=== PATIENT | female | born 2000 | race Caucasian/White ===

== ENCOUNTER 2022-12-15 04:56 | Emergency (ER) | payer BC, SELFPAY ==
[2022-12-15 05:09] VITALS: BP 108/68; PULSE 77; RESP 18; TEMP 36.8; O2SAT 99; BMI 25.2
--- NOTE | 2022-12-15 06:04 | ED.GENADULT ---
HPI - General Adult General Chief complaint: Abdominal Pain Stated complaint: abdominal & chest pain Time Seen by Provider: 12/15/22 05:07 History of Present Illness HPI narrative: 22-year-old young woman here with her boyfriend with concern of chest and abdominal pain such that she just can not sleep. Has had to extensive evaluations in regional emergency departments within the last 4 days. I do review these records. She is not taking any pain medications, not even acetaminophen. She is complaining of bilateral upper mid axillary line chest pain that alexis and worse with inspiration or with any movement. Has been going on 2 weeks now. She says it feels like an asthma attack; reporting having had asthma as a child. It becomes apparent that really is diffusely over her chest. She does have some cough sounds like it is more when she is lying down. I asked her specifically what she is most worried about earlier and sounds like she is worried about pneumonia. With the same symptoms which have been present over the last 2 weeks evaluations have included normal white count normal D-dimer normal chest x-rays without evidence of pneumonia or pneumothorax or pneumomediastinum. Sounds as though she did have COVID 2-3 years ago. They did measure a temperature to 100 yesterday? No rashes. Has been struggling also with initially upper abdominal pain which has progressed throughout her abdomen. Has had normal CT imaging. She reports having recently had also a normal EGD biopsies were taken. She has been initiated on omeprazole and Carafate however. GI cocktails were given in the emergency department it looks like in to says that just made her worse. With eating anything she says her stomach alexis. She also subsequently has loose to diarrheal stools. There is blood in this stool sometimes. Pain is often also in the left upper to mid abdomen. There was a question here of whether not she might have ischemic stomach; wondering whether any labs to that and had been ordered in the last few days. No family history of rheumatological disorders or bowel abnormalities. Related Data Home Medications Medication Instructions Recorded Confirmed fluoxetine 20 mg capsule 20 mg PO DAILY 12/15/22 12/15/22 norgestimate-ethinyl estradiol 1 tab PO DAILY 12/15/22 12/15/22 0.18 mg/0.215mg/0.25mg-35 mcg(28)tablet omeprazole 40 mg capsule,delayed 40 mg PO DAILY 12/15/22 12/15/22 release ondansetron HCl 4 mg tablet 4 mg PO Q8H PRN nausea/vomiting 12/15/22 12/15/22 sucralfate 1 gram tablet 1 g PO QID 12/15/22 12/15/22 Allergies Allergy/AdvReac Type Severity Reaction Status Date / Time No Known Drug Allergies Allergy Verified 12/15/22 05:12 Review of Systems Status of ROS: Reports: 6 or more systems reviewed and unremarkable except as noted in History and below [facility] Medical History Abdominal pain Anxiety Asthma Chest pain GERD (gastroesophageal reflux disease) No significant past medical history Social History Smoking Status: Never smoker Do you use any of these nicotine containing products: None Second hand tobacco smoke exposure: No How often do you have a drink containing alcohol: never How often do you have six or more drinks on one occasion: Never AUDIT-C Alcohol total score: 0 Non-prescribed substance use: denies use Exam Narrative: Exam Narrative: Brow is furrowed in apparent discomfort and concern. Who is quite calm. Does not appear to be any particular distress. Is not labored in her breathing. Lungs actually are clear. Near the end of extended conversation did have two small singular coughs. Oropharynx is moist. I do not see cobblestoning. Neck is supple without adenopathy. No supraclavicular crepitus. She is diffusely tender over entire thorax/chest. This includes the rhomboids. Skin is warm and dry. Well perfused. Extremities are with no to edema. Abdomen is tender I would say in anticipation as well. Also diffusely tender more so over the upper abdomen especially epigastrium. Normal bowel sounds. Soft without peritoneal signs. Const: Vital Signs, click to edit/add: Vital Signs - 24 hr 12/15/22 05:09 12/15/22 06:23 12/15/22 06:23 Temperature 98.2 F 98.2 F 98.2 F Pulse Rate [Right Pulse Oximeter] 77 77 Respiratory Rate 18 18 Blood Pressure [Ri ght Upper Arm] 108/68 108/68 Pulse Oximetry 99 99 Oxygen Delivery Me thod Room Air Room Air 12/15/22 06:25 Temperature 98.2 F Pulse Rate [Right Pulse Oximeter] 77 Respiratory Rate 18 Blood Pressure [Ri ght Upper Arm] 108/68 Pulse Oximetry Oxygen Delivery Me thod Documenting provider has reviewed patient's vital signs: yes Course Vital Signs Vital signs: Initial Vital Signs Temperature 98.2 F 12/15/22 05:09 Temperature Source Temporal Artery Scan 12/15/22 05:09 Pulse Rate 77 12/15/22 05:09 Respiratory Rate 18 12/15/22 05:09 Blood Pressure 108/68 12/15/22 05:09 Blood Pressure Mean 81 12/15/22 05:09 Blood Pressure Position Sitting 12/15/22 05:09 Pulse Oximetry 99 12/15/22 05:09 Oxygen Delivery Method 12/15/22 05:09 Vital Signs Temperature 98.2 F 12/15/22 05:09 Pulse Rate 77 12/15/22 05:09 Respiratory Rate 18 12/15/22 05:09 Blood Pressure 108/68 12/15/22 05:09 Pulse Oximetry 99 12/15/22 05:09 Oxygen Delivery Method 12/15/22 05:09 Temperature 98.2 F 12/15/22 06:25 Pulse Rate 77 12/15/22 06:25 Respiratory Rate 18 12/15/22 06:25 Blood Pressure 108/68 12/15/22 06:25 Pulse Oximetry 99 12/15/22 06:23 Oxygen Delivery Method 12/15/22 06:23 Medical Decision Making MDM Narrative Medical decision making narrative: Normal vitals here with extensive evaluation recently without findings. I do not know that much more from an evaluation standpoint can be done in the setting the emergency department. She does have an appointment with Gastroenterology for her stomach tomorrow. Has also been recommended to see acupuncture; it is not clear to me that appointment is yet been made. Seems to have symptoms consistent with irritable bowel at this point. I do not know if some of this started on the heels of COVID. She is reporting some intermittent hematochezia which might require yet a colonoscopy. Appears today to be complaining primarily of reproducible chest wall pain. Surely some deconditioning as well is affecting her symptoms. Has not taken any pain medication of any sort only medications prescribed for stomach. It seems that chest pain is of more concern today. I discussed then treating for apparent chest wall pain. I see no evidence an asthma exacerbation. Decided to proceed with a shot of ketorolac and then continuation with prednisone. I do have concerns that prednisone might irritate stomach. Should probably take this with a little bit of food. Potentially less irritating though than NSAID like ibuprofen. Discharge Plan Discharge Clinical Impression: Chest wall pain, Cough Patient Disposition: Home w/ Parent or Adult Condition: Stable Additional Instructions: Continue to focus on hydration. Diluted juices, sodas, Jell-O, popsicles. I think it is very good you have a follow-up with Gastroenterology tomorrow. Please get follow-up appointment scheduled with your primary care provider for within the next 2 weeks. You need a plan following this appointment with Gastroenterology. Usually acetaminophen does not hurt a stomach though I suppose consider taking nearly any medication with a little bit of food. Can take up to 1000 mg per dose every 6 hours. I would try to take the prednisone with a little bit of food if possible. It does seem as though you have developed, for lack of better terminology, some irritable bowel. Acupuncture may indeed be helpful. Perhaps appointment with alternative or naturopathic medicine would be in order as well. Prednisone from [facility]. Prescriptions: No Action sucralfate 1 gram tablet 1 g PO QID ondansetron HCl 4 mg tablet 4 mg PO Q8H PRN (Reason: nausea/vomiting) omeprazole 40 mg capsule,delayed release(DR/EC) 40 mg PO DAILY norgestimate-ethinyl estradiol 0.18/0.215/0.25 mg-35 mcg (28) tablet 1 tab PO DAILY fluoxetine 20 mg capsule 20 mg PO DAILY Stand Alone Forms: [employer] Info Instructions
[2022-12-15 06:23] VITALS: BP 108/68; PULSE 77; RESP 18; TEMP 36.8; O2SAT 99
[2022-12-15] MEDS: KETOROLAC 60 MG/2 ML inj IM (06:23)
[2022-12-15 06:25] VITALS: BP 108/68; PULSE 77; RESP 18; TEMP 36.8
== END 2022-12-15 06:25 | disposition home or self-care (01) ==
PROVIDERS: Emergency Provider Family Medicine; PCP Student in an Organized Health Care Education/Training Program
DX: R07.89 Other chest pain (principal); R05.9 Cough, unspecified
CPT/HCPCS: 96372; 99283; 99284; J1885

== ENCOUNTER 2023-01-27 11:33 | Outpatient (CLI) | payer BC, SELFPAY ==
--- NOTE | 2023-01-27 12:00 | CRLHL7_ITS ---
For Patients: As a result of the 21st Century Cures Act, medical imaging exams and procedure reports are released immediately into your electronic medical record. You may view this report before your referring provider. If you have questions, please contact your health care provider. HISTORY: 22-year-old female. Abdominal pain. TECHNIQUE: 5.11 millicuries of [id number] was injected intravenously. Images of the liver, gallbladder and abdomen were obtained in the anterior projection for 60 minutes. 1.27 mcg CCK was then administered intravenously and imaging was continued for an additional 30 minutes. FINDINGS: There is good uptake of activity by the hepatocytes. There is visualization of the biliary tree, gallbladder and small bowel. In response to CCK administration, there was an abnormally low gallbladder ejection fraction of 7 percent by 30 minutes. IMPRESSION: 1. Abnormally low gallbladder ejection fraction of 7 percent. 2. These findings are consistent with chronic cholecystitis/biliary dyskinesis/acalculous cholecystitis. Dictated by Stuart Ndiaye MD @ 01/27/2023 2:39:09 PM (Electronically Signed)
== END 2023-01-27 11:34 | disposition home or self-care (01) ==
LOC: NM 11:33
PROVIDERS: PCP Student in an Organized Health Care Education/Training Program; Visit Provider Internal Medicine Gastroenterology
DX: R10.10 Upper abdominal pain, unspecified (principal); K64.8 Other hemorrhoids; R63.4 Abnormal weight loss
CPT/HCPCS: 78227; A9537; J2805

== ENCOUNTER 2023-02-10 07:41 | Day surgery (SDC) | payer BC, SELFPAY ==
[2023-02-10] VITALS (11 sets, daily range): BP systolic 98–132; BP diastolic 66–84; PULSE 66–98; RESP 12–20; TEMP 36.1–37.2; O2SAT 95–100; BMI 28.0
[2023-02-10 08:03] LABS: Ur HCG Qualitative* Negative (Negative)
[2023-02-10] MEDS: LACTATED RINGERS 1000 ML 1,000 ML 100 ML IV (08:15)
[2023-02-10] MEDS: SODIUM CHLORIDE 0.9 % (FLUSH) 10 ML SYRINGE IVF (08:15)
--- NOTE | 2023-02-10 08:54 | W.ANESCHARGE ---
Anesthesia Charges Start Date/Time Anesthesia Start Date: 02/10/23 Anesthesia Start Time: 08:34 Stop Date/Time Anesthesia Stop Date: 02/10/23 Anesthesia Stop Time: 09:37
[2023-02-10] MEDS: CEFAZOLIN 2 GM INJ IVP (08:55)
[2023-02-10] MEDS: BUPIVACAINE 0.5% 30 ML 20 ML INJECTION (09:15)
--- NOTE | 2023-02-10 09:23 | PM.GSPRC ---
Operative Note Date of procedure: 02/10/23 Pre-op diagnosis: Biliary dyskinesia Post-op diagnosis: Same Type of Procedure: Laparoscopic cholecystectomy Indications: Patient is a 22-year-old female who presented to clinic with symptomatic right upper quadrant abdominal pain. Workup was obtained with HIDA scan demonstrating an abnormally low ejection fraction and dysfunction of the gallbladder. Risks and benefits of operative intervention were discussed at length with the patient. Risks included but was not limited to: Bleeding, infection, risk of damage to surrounding structures, possible need for additional procedures, possible need to convert to an open operation and postoperative complications such as pneumonia, pulmonary emboli or DE. All questions and concerns were addressed with the patient agreeing to proceed. Procedure Description: After discussing the risks and benefits of the procedure, the patient signed informed consent.? The operative site was marked and the patient was brought to the operating room and placed on the operating table in supine position.? Care was taken to pad the patient's pressure points.?? The patient was then intubated by anesthesia.?? The operative site was then prepped and draped in the usual sterile fashion.? A time-out was then performed. ? Entrance to the abdomen was gained via a 5 mm Visiport in the left upper quadrant. The abdomen was insufflated and briefly surveyed for signs of injury. There was none. 11 mm umbilical port was placed as well as 2 working ports along the right costal margin. Patient was then placed in reverse Trendelenburg position with the right side up. The gallbladder fundus was grasped and retracted cephalad. The infundibulum was grasped. A combination of hook cautery and blunt dissection was used to carefully dissect out the cystic duct and artery until they could clearly be seen entering the gallbladder without any intervening structures. The gallbladder was dissected off the cystic plate to achieve the critical view. Once this was achieved the cystic duct and artery were each clipped with 2 clips proximally and 1 clip distally and transected with the scissors. The gallbladder was then taken off of the liver bed. And removed from the abdomen using an Endo-Catch bag. The gallbladder bed was surveyed for hemostasis, which was excellent. The ports were then removed under direct vision. The umbilical port fascia was closed with 0 Vicryl. The skin was closed with absorbable subcuticular suture. Instrument sponge and needle counts were correct at the end of the case. The patient was then woken and transferred to the PACU in stable condition. Sterile dressings were then applied. ? Findings: Normal gallbladder. Anesthesia: GETA Surgeon: Alyssa Cooper MD Estimated blood loss (mL): 5 Specimen: Gallbladder Condition: stable Disposition: same day
--- NOTE | 2023-02-10 09:41 | W.ANESCHARGE ---
Anesthesia Charges Start Date/Time Anesthesia Start Date: 02/10/23 Anesthesia Start Time: 08:34 Stop Date/Time Anesthesia Stop Date: 02/10/23 Anesthesia Stop Time: 09:37
[2023-02-10] MEDS: ACETAMINOPHEN 325 MG TABLET 650 MG PO (10:32)
== END 2023-02-10 11:03 | disposition home or self-care (01) ==
PROVIDERS: PCP Student in an Organized Health Care Education/Training Program; Visit Provider Surgery
PROC: 0FT44ZZ Resection of Gallbladder, Percutaneous Endoscopic Approach (ICD-10-PCS; CPT 47562; principal; 2023-02-10 09:00)
DX: K82.8 Other specified diseases of gallbladder (principal); R10.11 Right upper quadrant pain
CPT/HCPCS: 47562; 00790; 81025; 88304; A9270; J0330; J0690; J1100; J2250; J2405; J2704; J3010; J3490; J7120

== ENCOUNTER 2023-05-04 12:33 | Emergency (ER) | payer BC, SELFPAY ==
[2023-05-04 12:55] VITALS: BP 106/73; PULSE 82; RESP 18; TEMP 36.6; O2SAT 100; BMI 23.8
--- NOTE | 2023-05-04 13:13 | ED.GENADULT ---
HPI - General Adult General Chief complaint: Abdominal Pain Stated complaint: abdominal pain, post op complications Time Seen by Provider: 05/04/23 12:49 History of Present Illness HPI narrative: Patient is a 22-year-old female go to gallbladder out a couple months ago with Dr. Cheek, has had intermittent loose stool especially after she eats, some occasional abdominal bloating. She thinks she also has occasional fever. She has no fever today, reports that her abdomen feels a little bloated. She has not had constipation has been able to eat and drink fluids good urine output. No weight loss Related Data Home Medications Medication Instructions Recorded Confirmed fluoxetine 20 mg capsule 20 mg PO DAILY 12/15/22 05/04/23 norgestimate-ethinyl estradiol 1 tab PO DAILY 12/15/22 05/04/23 0.18 mg/0.215mg/0.25mg-35 mcg(28)tablet ondansetron HCl 4 mg tablet 4 mg PO Q8H PRN nausea/vomiting 12/15/22 02/10/23 Previous Rx's Medication Instructions Recorded oxycodone 5 mg tablet 5 mg PO Q6H PRN pain #15 tabs 02/10/23 sennosides 8.6 mg capsule (senna) 8.6 mg PO DAILY PRN constipation 02/10/23 #90 caps Allergies Allergy/AdvReac Type Severity Reaction Status Date / Time adhesive tape Allergy Verified 02/10/23 07:59 Influenza Virus Vaccines AdvReac Severe Hives Verified 02/02/23 13:19 Review of Systems Status of ROS: Reports: 6 or more systems reviewed and unremarkable except as noted in History and below PFSH PFS Medical History Chest pain ?R07.9 - Chest pain, unspecified (ICD-10) Abdominal pain ?R10.9 - Unspecified abdominal pain (ICD-10) Asthma ?J45.909 - Unspecified asthma, uncomplicated (ICD-10) Anxiety ?F41.9 - Anxiety disorder, unspecified (ICD-10) GERD (gastroesophageal reflux disease) ?K21.9 - Gastro-esophageal reflux disease without esophagitis (ICD-10) No significant past medical history Social History Smoking Status: Never smoker Do you use any of these nicotine containing products: None Second hand tobacco smoke exposure: No How often do you have a drink containing alcohol: 2-4 times a month AUDIT-C Alcohol total score: 2 Non-prescribed substance use: denies use Caffeine: Yes (coffee) Are you using contraception or practicing any form of control: Yes ( control) Exam Narrative: Exam Narrative: Objective: Vital signs unremarkable, afebrile In general no apparent distress pulses regular Abdomen benign soft nontender Surgical small scars appear well healed No rebound or masses Const: Vital Signs, click to edit/add: Vital Signs - 24 hr 05/04/23 12:55 05/04/23 13:34 Temperature 97.9 F 98.6 F Pulse Rate [Right Pulse Oximeter] 82 70 Respiratory Rate 18 16 Blood Pressure [Ri ght Upper Arm] 106/73 107/72 Pulse Oximetry 100 Oxygen Delivery Me thod Room Air Course Vital Signs Vital signs: Initial Vital Signs Temperature 97.9 F 05/04/23 12:55 Temperature Source Temporal Artery Scan 05/04/23 12:55 Pulse Rate 82 05/04/23 12:55 Respiratory Rate 18 05/04/23 12:55 Blood Pressure 106/73 05/04/23 12:55 Blood Pressure Mean 84 05/04/23 12:55 Blood Pressure Position Sitting 05/04/23 12:55 Pulse Oximetry 100 05/04/23 12:55 Oxygen Delivery Method Room Air 05/04/23 12:55 Vital Signs Temperature 97.9 F 05/04/23 12:55 Pulse Rate 82 05/04/23 12:55 Respiratory Rate 18 05/04/23 12:55 Blood Pressure 106/73 05/04/23 12:55 Pulse Oximetry 100 05/04/23 12:55 Oxygen Delivery Method Room Air 05/04/23 12:55 Temperature 98.6 F 05/04/23 13:34 Pulse Rate 70 05/04/23 13:34 Respiratory Rate 16 05/04/23 13:34 Blood Pressure 107/72 05/04/23 13:34 Pulse Oximetry 100 05/04/23 12:55 Oxygen Delivery Method Room Air 05/04/23 12:55 Medical Decision Making MDM Narrative Medical decision making narrative: 22 year old white female status post gallbladder removal couple months ago with some intermittent loose stools after meals, some abdominal bloating. Patient may have some type of dumping syndrome that is known to happen after cholecystectomy, and I will set her up to see DrTheodora: Her regular surgeon regarding head options and assessment. In the interim I think checking labs be appropriate in form LFTs amylase electrolytes and CBC CRP. If these are reassuring follow-up with Dr. Cheek is scheduled Lab Data Labs: Lab Results 05/04/23 Range/Units 13:16 WBC 5.36 (4.50-11.00) K/uL RBC 4.54 (4.00-5.20) m/uL Hgb 13.1 (12.0-16.0) gm/dL Hct 38.8 (33.0-51.0) % MCV 86 (80-100) fL MCH 29 (26-34) pg MCHC 34 (32-36) gm/dL RDW Coeff of Oscar 11.0 L (11.5-15.5) % Plt Count 231 (140-440) K/uL Neut % (Auto) 57.4 (42.0-72.0) % Lymph % (Auto) 31.5 (20-44) % Reynolds % (Auto) 7.5 (0.0-11.0) % Eos % (Auto) 3.2 (0.0-7.0) % Baso % (Auto) 0.4 (0.0-3.0) % Neut # (Auto) 3.08 (1.7-7.0) K/uL Lymph # (Auto) 1.69 (0.90-2.90) K/uL Reynolds # (Auto) 0.40 (0.00-0.90) K/UL Eos # (Auto) 0.17 (0.00-0.50) K/uL Baso # (Auto) 0.02 (0.00-0.30) K/uL Abs Immat Gran (auto) 0.00 (0.00-0.30) K/uL Imm/Tot Granulo (auto) 0.0 % Sodium 137 (135-149) mmol/L Potassium 3.5 L (3.6-5.1) mmol/L Chloride 105 (96-114) mmol/L Carbon Dioxide 28 (20-32) mmol/L BUN 12 (5-24) mg/dL Creatinine 0.7 (0.5-1.5) mg/dL Estimated Creat Clear 100.55 Estimated GFR 126 ml/min Glucose 86 (60-115) mg/dL Calcium 8.4 (8.4-10.6) mg/dL Total Bilirubin 0.4 (0.1-1.5) mg/dL Direct Bilirubin 0.0 (0.0-0.5) mg/dL AST 18 (12-35) U/L ALT 15 (4-35) U/L Alkaline Phosphatase 78 (40-150) U/L C-Reactive Protein 1.0 (0.5-1.0) mg/dL Total Protein 7.1 (6.0-8.3) g/dL Albumin 4.1 (3.3-5.0) g/dL Amylase 77 (18-89) U/L Discharge Plan Discharge Clinical Impression: Abdominal bloating, History of cholecystectomy Patient Disposition: Home, Self-Care Condition: Stable Additional Instructions: Low-fat diet, eat yogurt every day, follow up with Dr. Cooper as scheduled. Return to ED sooner problems or concerns Follow up appointment is scheduled at the [facility] on 05/11 with a 4:15pm appointment time. Please arrive at 4:05pm to check in. If you have any questions or need to reschedule, please call [phone]. [facility] [address] [place] [address] Activity Level: No Restrictions Discharge Diet: Low Fat/Low Cholesterol Prescriptions: No Action ondansetron HCl 4 mg tablet 4 mg PO Q8H PRN (Reason: nausea/vomiting) norgestimate-ethinyl estradiol 0.18/0.215/0.25 mg-35 mcg (28) tablet 1 tab PO DAILY fluoxetine 20 mg capsule 20 mg PO DAILY oxycodone 5 mg tablet 5 mg PO Q6H PRN (Reason: pain) Qty: 15 0RF senna 8.6 mg capsule 8.6 mg PO DAILY PRN (Reason: constipation) Qty: 90 0RF Follow Up/Referrals: Fabi Santos PA-C [Primary Care Provider] - Stand Alone Forms: [employer] Info Instructions
[2023-05-04 13:27] LABS: Basophils Absolute Auto 0.02 K/uL (0.00-0.30); Basophils Percent Auto 0.4 % (0.0-3.0); Eosinophils Absolute Auto 0.17 K/uL (0.00-0.50); Eosinophils Percent Auto 3.2 % (0.0-7.0); Hematocrit 38.8 % (33.0-51.0); Hemoglobin* 13.1 gm/dL (12.0-16.0); Lymphocytes Absolute Auto 1.69 K/uL (0.90-2.90); Lymphocytes Percent Auto 31.5 % (20-44); Mean Corpuscular HGB Conc 34 gm/dL (32-36); Mean Corpuscular Hemoglobin 29 pg (26-34); Mean Corpuscular Volume 86 fL (80-100); Monocytes Percent Auto 7.5 % (0.0-11.0); Neutrophils Absolute Auto 3.08 K/uL (1.7-7.0); Neutrophils Percent Auto 57.4 % (42.0-72.0); Platelet Count* 231 K/uL (140-440); Red Blood Count 4.54 m/uL (4.00-5.20); White Blood Count* 5.36 K/uL (4.50-11.00)
[2023-05-04 13:28] LABS: Slide Review Reflex No
[2023-05-04 13:34] VITALS: BP 107/72; PULSE 70; RESP 16; TEMP 37
[2023-05-04 13:40] LABS: Albumin* 4.1 g/dL (3.3-5.0); Chloride* 105 mmol/L (96-114)
[2023-05-04 13:41] LABS: Potassium* 3.5 mmol/L (3.6-5.1); Sodium* 137 mmol/L (135-149)
[2023-05-04 13:43] LABS: Amylase* 77 U/L (18-89); Creatinine* 0.7 mg/dL (0.5-1.5); Est. Creatinine Clearance* 100.55; Estimated Glomerular Filt Rate 126 ml/min
[2023-05-04 13:44] LABS: Alanine Aminotransferase* 15 U/L (4-35); Alkaline Phosphatase* 78 U/L (40-150); Aspartate Amino Transferase* 18 U/L (12-35); Bilirubin Total* 0.4 mg/dL (0.1-1.5); Blood Urea Nitrogen* 12 mg/dL (5-24); Calcium* 8.4 mg/dL (8.4-10.6); Carbon Dioxide* 28 mmol/L (20-32); Glucose* 86 mg/dL (60-115); Total Protein* 7.1 g/dL (6.0-8.3)
== END 2023-05-04 13:30 | disposition home or self-care (01) ==
LOC: ED 13:22
PROVIDERS: Emergency Provider Family Medicine; PCP Student in an Organized Health Care Education/Training Program
DX: R14.0 Abdominal distension (gaseous) (principal)
CPT/HCPCS: 36415; 80048; 80076; 82150; 85025; 86140; 99283

== ENCOUNTER 2025-10-01 16:01 | Outpatient (CLI) | payer SELFPAY ==
[2025-10-01 16:07] VITALS: PULSE 108; PULSE 127; O2SAT 80; O2SAT 99
[2025-10-01 16:11] VITALS: BMI 32.0
[2025-10-01 16:12] VITALS: PULSE 110; O2SAT 97
[2025-10-01 16:23] VITALS: BP 116/64; PULSE 106; RESP 18; TEMP 37.2
[2025-10-01 16:56] LABS: Appearance Urine Slightly Cloudy (Clear)
--- NOTE | 2025-10-01 17:05 | CRLHL7_ITS ---
For Patients: As a result of the Cures Act, medical imaging exams and procedure reports are released immediately into your electronic medical record. You may view this report before your referring provider. If you have questions, please contact your health care provider. INDICATION: contractions. TECHNIQUE: Limited transabdominal and transvaginal OB pelvic ultrasound. COMPARISON: Ultrasound 06/28/2025. FINDINGS: Closed cervical length is 3.1 cm. Single living intrauterine in vertex presentation with heart rate of 149 beats per minute. Anterior placenta is otherwise unremarkable. Single deepest pocket of amniotic fluid is within normal limits at 6.6 cm. No pelvic free fluid demonstrated. IMPRESSION: Single living intrauterine in vertex presentation. Closed cervical length is 3.1 cm. Dictated by George Turner MD @ 10/01/2025 6:40:37 PM Dictated by: George Turner MD @ 10/01/2025 18:40:50 (Electronically Signed)
[2025-10-01 17:16] LABS: Trichomonas No Trichomonas Seen (None Seen)
[2025-10-01 17:38] LABS: Amnisure Rom* Negative
[2025-10-01 19:22] VITALS: BP 113/68; PULSE 125; RESP 16; TEMP 36.6
--- NOTE | 2025-10-01 20:52 | PM.OBLDTN ---
OB - Triage/Final Diagnosis Visit Information Time Seen by Provider: 17:10 Date Seen: 10/01/25 Date of evaluation: 10/01/25 Narrative: The patient is a 25 year old 1 para 0 at 33 weeks 5 days gestation by LMP c/w 6wk US, who presents with 3 days of pelvic cramping and pink discharge. Patient notes that she started to develop uterine cramping, similar to that of period cramps, about 3 days ago. She does have both pelvic pain and back pain. She also notes that she has some pink tinged discharge. She denies leakage of fluid. Her baby is active. She is otherwise feeling well. She denies any urinary symptoms. She ultimately called her OB provider today due to annoyance that the cramping had been going on for 3 days. Her is largely uncomplicated, but upon chart review she did note uterine cramping/reba cortez at 31 weeks and a difficult time getting comfortable. Evaluation Cervical dilation (cm): 0 Laboratory results: Laboratory Tests 10/01/25 10/01/25 Range/Units 17:29 16:32 Urine Color Yellow (Yellow) Urine Appearance Slightly Cloudy A (Clear) Urine pH 7.0 (5.0-8.5) Ur Specific [place] 1.020 (1.000-1.030) Urine Protein Trace A (Negative) Urine Glucose (UA) Trace A (Negative) Urine Ketones Negative (Negative) Urine Blood Negative (Negative) Urine Nitrite Negative (Negative) Urine Bilirubin Negative (Negative) Urine Urobilinogen 0.2 (0.2-1.0) Ur Leukocyte Esterase 1+ A (Negative) Urine RBC 0-2 (0-2) Urine WBC 0-2 (0-5) Ur Squamous Epith Cells Many A (None-Few) Amorphous Sediment Few A (None) Urine Bacteria Few A (None) Membrane Rupture Negative Vaginal Trichomonas No Trichomonas Seen (None Seen) Vaginal Yeast No Yeast Seen (None Seen) Vaginal Clue Cells No Clue Cells Seen (None Seen) Vital signs: Vital Signs - 24 hr 10/01/25 16:07 10/01/25 16:07 10/01/25 16:12 Temperature Pulse Rate Respiratory Rate Blood Pressure Pulse Oximetry 80 L 99 97 10/01/25 16:23 10/01/25 16:23 12/30/25 19:22 Temperature 99 F Pulse Rate 106 H 125 H Respiratory Rate 18 Blood Pressure 116/64 113/68 Pulse Oximetry Comments: Limited OB US with closed cervix that is 3.1cm in length. Generally well appearing, mildly anxious. Overall appears comfortable. Appears well perfused. Unlabored breathing. Abdomen gravid, but otherwise soft and nontender. Unable to palpate contractions that are noted on the monitor, patient does not feel them either. Vulva normal, but appears moist. Vaginal tissue normal appearing. Yellow-white thin disscharge in vaginal vault that pools in the speculum, possible fluid level to the discharge but no obvious pooling of clear fluid or trickling of fluid from the os. Cervix appears closed and thick, no lesions or erythema. Fetus (Single) Heart Rate Baseline: 140 Mcc Variability: Moderate (6-25) Monitor Accelerations: Present Monitor Decelerations: None Final Diagnosis (1) Uterine contractions at greater than 20 weeks of gestation: Status: Acute Problem details: The patient is a 25 year old 1 para 0 at 33 weeks 5 days gestation by LMP c/w 6wk US, who presented for rule out labor. Patient was alem on the monitor throughout her stay in triage, contractions were every 2-5 minutes but were not felt by the patient and were not palpated by RN or physician. Work up including urinalysis that did not appear consistent with infection but did appear to possibly contaminated. Wet prep without findings of vaginal infection. Amnisure negative. Speculum exam with closed and thick appearing cervix, confirmed with TVUS cervical length of 3.1cm. Discussed possible dehydration as etiology of contractions, however patient's urine appears well hydrated so decided against IV fluids - continued to encourage oral fluids. Ultimately, despite uterine contractions on the monitor, patient did not make cervical change after 4 hours of monitoring and reassuring work up. Did consider betamethasone for lung maturity out of caution in the event of labor, however given reassuring work up and review of resources decided against steroids at this time. Will discharge with scheduled OB visit on 10/04/25 for follow up. Strict return precautions provided including worsening abdominal/pelvic pain, ability to palpate/feel contractions, leakage of fluid, vaginal bleeding, or decreased movement. Patient voiced understanding and agreeable to discharge to home.
--- NOTE | 2025-10-01 21:03 | PC.OBNST ---
NST Note NST Note Start: 10/01/25 16:03 Freq: ONCE Status: Active Protocol: Document 10/01/25 21:03 BAW (Rec: 10/01/25 21:03 BAW No Response) NST Note 1 Para (# of births) 0 EDC 11/14/25 Gestational Age In 33 Weeks & 5 Days Weeks & Days Patient Presented Contractions/cramping with Complaint(s) of Reactive Yes Appropriate for Yes Gestational Age RN Lino Sheldon RNC Date 10/01/25 Reactive Yes Appropriate for Yes Gestational Age MICHELLE Parr RN Date 10/01/25 OB NST charge Yes Complete NST Note Yes via Write Note The provider's electronic signature indicates the NST is reactive/appropriate for gestational age. *Note to provider: If an addendum is required, open the patient's chart and click on the note under the Nurse/Allied Health tab.
== END 2025-10-01 20:55 | disposition home or self-care (01) ==
LOC: OB OUT 16:01 → OB 16:04
PROVIDERS: PCP Student in an Organized Health Care Education/Training Program; Visit Provider Student in an Organized Health Care Education/Training Program
DX: O47.03 False labor before 37 completed weeks of gestation, third trimester (principal); Z3A.33 33 weeks gestation of pregnancy
CPT/HCPCS: 59025; 76815; 76817; 81001; 81003; 84112; 87086; 87210; G0463